=== PATIENT | male | born 1995 | race Caucasian/White ===

== ENCOUNTER 2017-05-09 02:17 | Emergency (ER) | payer OTHER ==
[~2017-05-09] VITALS: Ht 182.9 cm; Wt 84.1 kg
[2017-05-09 02:24] VITALS: TEMP 98.9
[2017-05-09] MEDS ORDERED: TYLENOL 325MG325 MG PO (02:42)
[2017-05-09] MEDS ORDERED: PRILOSEC 20MG20 MG PO (02:43)
[2017-05-09] MEDS ORDERED: ULTRAM 50MG TAB50 MG PO (02:44)
[2017-05-09] MEDS ORDERED: ZYRTEC 10MG10 MG PO (02:44)
[2017-05-09 04:20] VITALS: BP 118/75; PULSE 76
== END 2017-05-09 04:20 | disposition home or self-care (01) ==
LOC: COL.ER 02:17
DX: J20.8 Acute bronchitis due to other specified organisms (principal); R20.0 Anesthesia of skin; R20.2 Paresthesia of skin; B97.89 Other viral agents as the cause of diseases classified elsewhere; K21.9 Gastro-esophageal reflux disease without esophagitis